=== PATIENT | female | born 1940 | race Caucasian/White ===

== ENCOUNTER 2017-10-11 12:59 | Outpatient (RCR) | payer MEDICARE, BC, SELFPAY ==
--- NOTE | 2017-10-11 13:15 | IE_ITS ---
Date: October 11, 2017 Referring: Colton Rudolph M.D. M.D. Diagnosis: right shoulder pain (bursitis) and LBP SUBJECTIVE: History of Present Illness: Lizette is a 77 year old, right hand dominant female referred for an evaluation and treatment planning with a diagnosis of right shoulder bursitis and LBP. The patient reports an insidious onset of right shoulder pain without trauma. Symptoms began a month ago. Is having sharp pain with crepitus with use of the right UE, particularly reaching above chest level. The pain is globally throughout the shoulder, anterior and superior aspects. Regarding LBP, she complains of symptoms across the low back, particularly when having her bouts of jay jay from bipolar, cleaning her house from top to bottom. Symptoms can last 1 to 2 hrs. post activity, and she has to take Excedrin or Tylenol and lay down. This does help. She also applies moist heat. She denies sciatica symptoms. Pain Ratin/10 at time of I.E. and 3/10 at it's worst. Back pain 0/10 at time of I.E. and 5/10 at it's worst. Current Level of Function: Difficulty reaching above chest level, such as when putting dishes away in higher cabinets, lifting a water jug from the refrigerator as well as holding her pocketbook with her elbow flexed. Social: She is retired. Lives in a multi level home with her . Comorbidities: Hypo thyroidism, bipolar Falls in the last year: __x__ No ____Yes - How many? ____ - (if over 2, balance SM needs to be completed) Reported hospitalizations in the last year - __x__ No ____ Yes - Dates of admission/reason: Medications: See patient EMR. Quality of Life: __x__ Good Standardized Measures: DASH score: __22%__ MOLBPDQ: __22%__ OBJECTIVE: Posture: Increased thoracic kyphosis with a mild Dowagers hump. Forward head. Poor sitting posture with excessive slouch that can be corrected with tactile and verbal cues. Palpation: Painfree palpation throughout bilateral glutes and lumbar paraspinals. Mild hypomobility detected with PAs L3 through L5 with minimal pain. Mild discomfort over the anterior cuff of the right shoulder; (-) posteriorly. ROM: Active glenohumeral joint ROM 140 bilaterally and 150 AA and 160 P in supine. External rotation to T3 bilaterally and internal rotation T8 left; L2 right and T11 AA. The patient does have crepitus with active elevation from 80 to 110 . This is reduced with proper scapular positioning. Lumbar spine AROM, flexion 2 fingertips from the floor without pain, extension 10 , side bending and rotation WNL bilaterally without pain. Hip ROM WNL throughout all planes without pain. Strength: 4/5 glenohumeral joint flexion and abduction without pain, ext rotation 4-/5 bilaterally and int rotation 4+/5 bilaterally without pain. Hip strength, abduction 4/5 tested in sitting, flexion 4+/5 bilaterally, adduction 5/5 bilaterally, quadriceps and hamstrings 4+/5 bilaterally. Neuro: Sensation is intact to light touch throughout bilateral LEs. DTRs hypo reflexive and +1 for knee jerk and ankle jerk bilaterally. Myotomes are congruent bilaterally; 4/5 LEs. Special Tests: (+) Honeycutt Elmer. (-) empty can. (-) speeds. (-) dural tension testing with SLR or slump testing. (-) lumbar quadrant compression. Treatment: IE: 11605 x1 Patient Education: HEP focusing on seated rows, prone glenohumeral joint extension with scapular depression/retraction, prone hip extension and prone on elbows as well as bent knee fall outs and knee to chest ROM exercises. The patient declined the need for moist heat post treatment. Therapeutic procedure: ([id number][]). Direct treatment time: 60 min. from 1:00 til 2:00 P.M. ASSESSMENT: Patient is a 77-year-old female, referred for PT services with the diagnosis of right shoulder bursitis and LBP. Patient presents with clinical signs and symptoms consistent with OA of the right shoulder and DJD/DDD of the lumbar spine, as demonstrated by the following impairment level findings: impaired joint mobility, motor function, muscle performance and ROM associated with connective tissue dysfunction and localized inflammation Impairments are contributing to the following functional limitations: as listed above. Patient's postural deficits certainly predispose her to poor scapular mechanics resulting in increased compression subacromially. Patient is assessed as: __x__ Low 23400 complexity, based on the following: History: (list): See comorbidities and social history. Examination: (list): See above for functional limitations and impairments. Presentation: Stable and uncomplicated Decision-Making: Low complexity ____ Patient requires skilled PT intervention to remediate the above functional limitations to return to: __x__ Return to full functional mobility Prognosis: __x__ Good G-Codes (fill in modifier after appropriate code): Patient's primary functional limitation is in the category of: __x__ Carrying, moving and handling objects: -[id number] Projected goal: __x__ Carrying, moving, and handling objects [id number] STG: __6__ weeks. 1) independent and compliant with her HEP 2) improve shoulder strength for ext rotation to greater than or equal to 4+/5 3) patient independent in postural correction and maintenance of proper sitting postures 4) patient demonstrating self pacing strategies when cleaning to avoid exacerbation of LBP LTG: __12__ weeks. 1) independent in self maintenance program PLAN: Patient to be seen 1x per week every 2 weeks for progression of her HEP with focus on postural correction exercises, ext rotation strengthening, glute and lumbar extensor strengthening. The patient wishes to pursue this through an independent program. Will consider right glenohumeral joint mobilization if she is not progressing well, and would also consider including more in clinic soft tissue work and shoulder mobilizations as needed. The patient is to be discharged when the above goals have been met. Thank you for this referral. Please do not hesitate to contact me with any questions or concerns regarding this patient's plan of care. Please sign, date and return to our clinic with your approval.................................... Colton Rudolph M.D.
== END 2017-10-20 23:59 | disposition home or self-care (01) ==
LOC: PT 12:59
PROVIDERS: PCP Family Medicine; Referring Provider Family Medicine; Visit Provider Family Medicine
DX: M25.511 Pain in right shoulder (principal); M19.011 Primary osteoarthritis, right shoulder; M54.5 Low back pain; M51.36 Other intervertebral disc degeneration, lumbar region
CPT/HCPCS: 97110; 97161

== ENCOUNTER → 2017-11-20 12:56 | Outpatient (BNVA) | payer MEDICARE, BC, SELFPAY | PROVIDERS: PCP Family Medicine; Visit Provider Nurse Practitioner Gerontology | DX: R39.12 Poor urinary stream (principal) | CPT/HCPCS: 51798; 81003; 99204; 99215 ==

== ENCOUNTER 2017-11-30 13:49 | Outpatient (CLI) | payer MEDICARE, BC, SELFPAY ==
[2017-11-30 19:43] LABS: Bilirubin Negative (Negative); Blood Trace-intact (Negative); Clarity Sl Cloudy; Glucose Negative (Negative); Ketones Negative (Negative); Leukocyte Esterase Small (Negative); Nitrite Positive (Negative); Urobilinogen 0.2 EU/dL (Up TO 0.2); pH 5.5 (5-8)
[2017-11-30 19:54] LABS: Bacteria Many HPF (Negative); Casts Negative LPF (Negative); Crystals Negative HPF (Negative); Epithelial Cells Negative HPF (Negative); Mucus Negative (Negative); RBC 20-50 (0-2); WBC >50 HPF (0-5)
[2017-11-30 19:55] LABS: C & S Indicated? Yes
== END 2017-11-30 14:09 ==
PROVIDERS: PCP Family Medicine; Visit Provider Family Medicine
DX: R30.0 Dysuria (principal)
CPT/HCPCS: 87077; 81003; 81015; 87086; 87186

== ENCOUNTER 2017-12-22 02:02 | Outpatient (CLI) | payer MEDICARE, BC, SELFPAY ==
[2017-12-22 15:17] LABS: Cholesterol 242 mg/dL (50-200); Glucose 106 mg/dL (70-100); HDL Cholesterol 54 mg/dL (40-60); LDL CHOLESTEROL 155 mg/dL (<100); TSH (W/Ref FT4) 2.37 uIU/mL (0.358-3.74); Triglyceride 142 mg/dL (30-150)
== END 2017-12-22 02:22 ==
PROVIDERS: PCP Family Medicine; Visit Provider Family Medicine
DX: E74.39 Other disorders of intestinal carbohydrate absorption (principal); E03.9 Hypothyroidism, unspecified; E11.9 Type 2 diabetes mellitus without complications
CPT/HCPCS: 36415; 80061; 82947; 83721; 84443

== ENCOUNTER 2018-01-31 10:13 | Outpatient (REF) | payer MEDICARE, BC, SELFPAY ==
[2018-01-31 11:14] LABS: Bilirubin Negative (Negative); Blood Large (Negative); Clarity Sl Cloudy; Glucose Negative (Negative); Ketones Negative (Negative); Leukocyte Esterase Moderate (Negative); Nitrite Negative (Negative); Specific Gravity >= 1.030 (1.005-1.025); Urobilinogen 0.2 EU/dL (Up TO 0.2); pH 5.5 (5-8)
[2018-01-31 11:21] LABS: Bacteria Few HPF (Negative); C & S Indicated? Yes; Casts Negative LPF (Negative); Crystals Negative HPF (Negative); Epithelial Cells Few HPF (Negative); Mucus Trace (Negative); RBC >50 (0-2); WBC 20-50 HPF (0-5)
== END 2018-01-31 10:33 ==
LOC: LBN 10:13
PROVIDERS: PCP Family Medicine; Visit Provider Family Medicine
DX: R30.0 Dysuria (principal)
CPT/HCPCS: 87077; 81003; 81015; 87086; 87186

== ENCOUNTER 2018-03-26 11:34 | Outpatient (CLI) | payer MEDICARE, BC, SELFPAY ==
[2018-03-26 22:10] LABS: Bilirubin Negative (Negative); Blood Moderate (Negative); Clarity Sl Cloudy; Glucose Negative (Negative); Ketones Trace mg/dL (Negative); Leukocyte Esterase Large (Negative); Nitrite Positive (Negative); Specific Gravity 1.025 (1.005-1.025); Urobilinogen 0.2 EU/dL (Up TO 0.2); pH 5.5 (5-8)
[2018-03-26 22:24] LABS: RBC >50 (0-2); WBC >50 HPF (0-5)
[2018-03-26 22:25] LABS: Bacteria Many HPF (Negative); C & S Indicated? Yes; Casts Negative LPF (Negative); Crystals Negative HPF (Negative); Epithelial Cells Negative HPF (Negative); Mucus Negative (Negative)
== END 2018-03-26 11:54 ==
PROVIDERS: PCP Family Medicine; Visit Provider Family Medicine
DX: R30.0 Dysuria (principal)
CPT/HCPCS: 87077; 81003; 81015; 87086; 87186

== ENCOUNTER → 2018-03-28 12:47 | Outpatient (BNVA) | payer MEDICARE, BC, SELFPAY | PROVIDERS: PCP Family Medicine; Visit Provider Nurse Practitioner Gerontology | DX: N39.0 Urinary tract infection, site not specified (principal); R39.12 Poor urinary stream | CPT/HCPCS: 99213 ==

== ENCOUNTER 2018-05-29 09:42 | Outpatient (CLI) | payer MEDICARE, BC, SELFPAY ==
--- NOTE | 2018-05-29 09:35 | DI.RAD_ITS ---
SYMPTOMS/DIAGNOSIS: PAIN RIGHT SHOULDER: Three views. Comparison 01/01/14. There are hypertrophic changes seen at the acromioclavicular joint and the greater tuberosity. Mild degenerative changes are seen at the glenohumeral joint. The bones are normally mineralized. The soft tissues are unremarkable. IMPRESSION: Mild to moderate osteoarthritis of the right shoulder.
== END 2018-05-29 10:02 ==
PROVIDERS: PCP Family Medicine; Referring Provider Family Medicine; Visit Provider Orthopaedic Surgery
DX: M25.511 Pain in right shoulder (principal); M19.011 Primary osteoarthritis, right shoulder
CPT/HCPCS: 20610; 99211; 99213; 73030; J1040

== ENCOUNTER 2018-10-22 13:49 | Emergency (ER) | payer MEDICARE, BC, SELFPAY ==
[2018-10-22 13:56] VITALS: BP 130/66; PULSE 90; RESP 20; TEMP 37; O2SAT 95
--- NOTE | 2018-10-22 14:49 | DI.RAD_ITS ---
SYMPTOM/DIAGNOSIS: KNEE PAIN LEFT KNEE: No fracture is identified. There may be a small joint effusion. There are degenerative changes of the medial femoral tibial joint and patellofemoral joint. IMPRESSION: Degenerative changes. No acute abnormality.
[2018-10-22 15:22] VITALS: BP 125/65; PULSE 73; RESP 16; O2SAT 95
--- NOTE | 2018-10-22 15:22 | W.ED.GENAD ---
Discharge Plan Disposition Patient Disposition: HOME Condition: Stable Discharge Details Chief Complaint: Orthopedic Clinical Impression: Acute knee pain Primary Care Provider: Fei Monreal ED Provider: Young Pratt Home Meds and New Rx's Prescriptions: Continued Premarin 0.625 mg/gram cream 1 applic Vaginal .2 times a week Qty: 60 RF: 0 Trintellix 10 mg tablet 20 mg PO DAILY Qty: 30 RF: 2 multivitamin 1 EACH capsule 1 ea PO DAILY RF: 0 nystatin 60 GM powder 1 gilda Topical BID prn Qty: 60 RF: 11 clobetasol 60 GM cream 1 applic Topical BID PRN RF: 0 cholecalciferol (vitamin D3) [Vitamin D3] 1,000 UNIT tablet,chewable 1,000 unit PO DAILY Qty: 90 RF: 3 vitamin B complex 1 EACH capsule 1 ea PO DAILY RF: 0 levothyroxine 75 mcg tablet 75 mcg PO DAILY Qty: 90 RF: 3 lorazepam 0.5 mg tablet 0.5 mg PO Q12H PRN (Reason: anxiety) Qty: 60 RF: 1 Discharge Instructions Instructions: Knee Pain (ED) Additional Instructions: rest ice and elevate extremity over the next 2 to 3 days and then slowly advance activity as tolerated with continue with hinged knee brace for the next 4 to 6 weeks. You may continue to take [id number] pain medication as needed for discomfort and to follow-up with orthopedist in the next 1 to 2 weeks for reassessment. Feel free to return to the emergency department for any new or significant worsening of your symptoms or further concerns you may have. Referrals: Milad Vieira MD [ [facility] STAFF PHYSICIAN] - Discharge Data Discharge Date/Time-TO BE ENTERED AT DEPARTURE: 10/22/18 15:55 Medical Decision Making Patient presenting to the emergency department for chief complaint of left knee pain. Patient reports yesterday she was going up some stairs and had a slight fall with a twisting type motion to her left knee. Afterwards she was unable to fully bear weight and that flexion of the knee significantly hurts. Patient denies any other injury or trauma loss of consciousness or other painful areas. Physical exam shows tenderness to the posterior aspects of the knee, slight patellar swelling, pain noted with both anterior and posterior drawer test. Exam is otherwise unremarkable. Given patient's age, fall, and inability to work bear weight I do feel that radiological imaging is warranted but I feel injury is highly suspicious of ligamentous type injury. Review of radiological imaging showsNo evidence of acute bony abnormality. It does note some mild degenerative arthritis. Given no acute fracture patient was placed in a hinged knee brace and encouraged to rest ice and elevate extremity over the next 2 to 3 days and then slowly advance activity as tolerated with continue with hinged knee brace. Otherwise patient may continue to take pjdz-[id number] pain medication as needed for discomfort and to follow-up with orthopedist in the next 1 to 2 weeks for reassessment. After discussion of diagnosis and plan of care patient has no further needs, questions, or concerns and states clear understanding to return to the emergency department for any worsening symptoms. HPI General Mode of arrival: ambulatory (With crutches). Date/Time Provider Initiated Documentation: 10/22/18 14:17. Limitations to Documentation: no limitations. Information obtained by: patient, family and RN notes reviewed. History of Present Illness 78 year old F presents to the emergency department with the chief complaint of Left knee injury, described as moderate, with intensity rated at 8. Quality is described as aching, and is localized to the left and lower extremity. Patient started experiencing this day(s) (1) and it has been constant. Rest improves symptom(s), Movement worsens symptoms . Patient notes no other symptoms.. Patient did receive the following treatments prior to arrival, none Related Data Home Medications Medication Instructions Recorded Confirmed multivitamin 1 ea PO DAILY 06/29/12 10/22/18 nystatin 1 gilda TOPICAL BID prn #60 gm 08/26/14 10/22/18 clobetasol 1 applic TOPICAL BID PRN script 03/19/15 10/22/18 cholecalciferol (vitamin D3) 1,000 unit PO DAILY #90 tab.chew 11/08/16 10/22/18 [Vitamin D3] vitamin B complex 1 ea PO DAILY 03/17/17 10/22/18 conjugated estrogens 0.625 mg/gram 1 applic VAGINAL .2 times a week 11/20/17 10/22/18 vaginal cream #60 gm levothyroxine 75 mcg tablet 75 mcg PO DAILY #90 tab 06/05/18 10/22/18 lorazepam 0.5 mg tablet 0.5 mg PO Q12H PRN #60 tab-cap 07/26/18 10/22/18 vortioxetine 10 mg tablet 20 mg PO DAILY #30 tab 08/10/18 10/22/18 Previous Rx's Medication Instructions Recorded cholecalciferol (vitamin D3) 1,000 unit PO DAILY #90 tab.chew 11/08/16 [Vitamin D3] conjugated estrogens 0.625 mg/gram 1 applic VAGINAL .2 times a week 11/20/17 vaginal cream #60 gm levothyroxine 75 mcg tablet 75 mcg PO DAILY #90 tab 06/05/18 lorazepam 0.5 mg tablet 0.5 mg PO Q12H PRN #60 tab-cap 07/26/18 vortioxetine 10 mg tablet 20 mg PO DAILY #30 tab 08/10/18 Allergies Allergy/AdvReac Type Severity Reaction Status Date / Time lurasidone [From Latuda] Allergy Intermediate Rash Verified 08/10/18 13:45 sulfamethoxazole AdvReac Severe Nausea, Verified 08/10/18 13:45 [From Bactrim] abd pain trimethoprim [From Bactrim] AdvReac Severe Nausea, Verified 08/10/18 13:45 abd pain General Stated Complaint: Orthopedic GINA: 4 Review of Systems Cardiovascular Denies syncope Musculoskeletal Reports as per HPI, Denies numbness and Denies tingling Integumentary/Breasts Denies rash, Denies sores and Denies wounds Neurologic Denies syncope, Denies numbness and Denies tingling PFSH Surgical History Biopsy of breast left; benign lump CorrectionGavin (11/18/14) RIGHT FOOT ; DR. 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 Brother No problems noted. Brother No problems noted. Grandfather Diabetes Stroke Grandfather Heart disease Grandmother Neoplasm Grandmother No problems noted. Son No problems noted. Son No problems noted. Social History Smoking/Tobacco Use Status: Former Tobacco Use Alcohol Intake: current Alcohol Intake frequency: a few times a month Drug use: Never Substance use type: does not use Household members: other Details: 2 Pets and animals: Yes Pets and animals: dog(s) What type of physical activity do you participate in: none Candida/Synagogue: [employer] Special candida needs: No Do you feel safe at home: Yes Do you feel safe in your relationship?: Yes Exam Const General: cooperative and no acute distress Orientation: alert, awake and oriented x3 Resp Effort & Inspection: normal respiratory effort and able to speak in complete sentences Cardio Rate: regular rate Rhythm: regular rhythm Extrem Left lower extremity: hip/thigh Details: normal to inspection; no tenderness, knee Details: tenderness Location: of the popliteal fossa and of the medial joint line, swelling (Mild) Location: of the infrapatellar area, abnormal ROM Details: pain with active ROM Details: with flexion; able to extend lower leg actively, knee ligament exam normal Details: valgus stress test normal and varus stress test normal and knee ligament exam abnormal Details: anterior drawer test Details: pain noted and posterior drawer test Details: pain noted; no abrasions, no lacerations, no ecchymosis and no crepitus, lower leg Details: normal to inspection; no erythema, no tenderness, no localized swelling and edema noted and foot Details: vascular exam Details: dorsalis pedis pulse present, posterior tibial pulse present and normal capillary refill Course Vital Signs Temperature 37.0 C 10/22/18 13:56 Pulse 90 10/22/18 13:56 Respiratory Rate 20 10/22/18 13:56 Blood Pressure 130/66 10/22/18 13:56 Pulse Oximetry 95 10/22/18 13:56 Temperature 35.3 C L 10/22/18 15:14 Temperature Source Skin 10/22/18 13:56 Pulse 62 10/22/18 15:14 Respiratory Rate 14 10/22/18 15:14 Respiratory Effort Non-Labored 10/22/18 14:02 Blood Pressure 127/81 10/22/18 15:14 Blood Pressure Position Supine 10/22/18 13:56 Pulse Oximetry 99 10/22/18 15:14 Oxygen Delivery Method Room Air 10/22/18 13:56 Oxygen Flow Rate 0 10/22/18 13:56 Pain Level 1 10/22/18 15:14 Comment 10/22/18 13:56
[2018-10-22 15:30] VITALS: BP 125/65; PULSE 73; RESP 16; O2SAT 95
--- NOTE | 2018-10-22 15:31 | DI.VRAD_ITS ---
EXAM: XR Left Knee EXAM DATE/TIME: 10/22/2018 2:49 PM CLINICAL HISTORY: 78 years old, female; Left; Patient HX: Knee pain; Per PT: Twisted on 10/21/18 in pm TECHNIQUE: Imaging protocol: XR Left knee. Views: 3 views. COMPARISON: No relevant prior studies available. FINDINGS: Mild degenerative arthritis with medial and patellofemoral joint space narrowing and osteophytic spurring. No acute fracture. Suggestion of a very small suprapatellar joint effusion. Soft tissues otherwise unremarkable. IMPRESSION: No evidence of acute bony abnormality. Dictated and Authenticated by: Al Rand MD. Ordering:JAK Vidal MD
== END 2018-10-22 15:55 | disposition home or self-care (01) ==
PROVIDERS: Emergency Provider Nurse Practitioner Family; PCP Family Medicine
DX: M25.562 Pain in left knee (principal); W10.8XXA Fall (on) (from) other stairs and steps, initial encounter; X50.9XXA Other and unspecified overexertion or strenuous movements or postures, initial encounter
CPT/HCPCS: 29505; 73562; 99283; L1810

== ENCOUNTER → 2018-11-07 11:09 | Outpatient (BNVA) | payer MEDICARE, BC, SELFPAY | PROVIDERS: PCP Family Medicine; Referring Provider Family Medicine; Visit Provider Orthopaedic Surgery | DX: M70.52 Other bursitis of knee, left knee (principal); W10.8XXA Fall (on) (from) other stairs and steps, initial encounter; X50.9XXA Other and unspecified overexertion or strenuous movements or postures, initial encounter | CPT/HCPCS: 99201; 99213 ==

== ENCOUNTER 2018-12-17 09:22 | Outpatient (CLI) | payer MEDICARE, BC, SELFPAY ==
[2018-12-17 15:50] LABS: Hemoglobin A1C 5.3 % (4.5-6.2)
[2018-12-17 16:20] LABS: Bilirubin Negative (Negative); Blood Trace-intact (Negative); Clarity Cloudy (Clear); Glucose Negative (Negative); Ketones Negative (Negative); Leukocyte Esterase Moderate (Negative); Nitrite Positive (Negative); Specific Gravity 1.015 (1.005-1.025); Urobilinogen 0.2 EU/dL (Up TO 0.2)
[2018-12-17 16:46] LABS: Epithelial Cells Few HPF (Negative); Other Cells Moderate Renal (Negative); WBC >50 HPF (0-5)
[2018-12-17 16:46] LABS: TSH (W/Ref FT4) 1.36 uIU/mL (0.36-3.74)
[2018-12-17 16:47] LABS: Bacteria Packed HPF (Negative); C & S Indicated? Yes; Casts Negative LPF (Negative); Crystals Negative HPF (Negative); Mucus Negative (Negative)
== END 2018-12-17 09:42 ==
PROVIDERS: PCP Family Medicine; Visit Provider Family Medicine
DX: F31.81 Bipolar II disorder (principal); R73.01 Impaired fasting glucose; R30.0 Dysuria; R35.0 Frequency of micturition
CPT/HCPCS: 36415; 87077; 81003; 81015; 83036; 84443; 87086; 87186

== ENCOUNTER → 2019-03-26 14:34 | Outpatient (BNVA) | payer MEDICARE, BC, SELFPAY | PROVIDERS: PCP Family Medicine; Referring Provider Family Medicine; Visit Provider Nurse Practitioner Gerontology | DX: N39.0 Urinary tract infection, site not specified (principal) | CPT/HCPCS: 99213 ==

== ENCOUNTER → 2019-04-24 10:07 | Outpatient (BNVA) | payer MEDICARE, BC, SELFPAY | PROVIDERS: PCP Family Medicine; Referring Provider Family Medicine; Visit Provider Orthopaedic Surgery | DX: M70.52 Other bursitis of knee, left knee (principal) | CPT/HCPCS: 99213 ==

== ENCOUNTER → 2020-07-07 15:28 | Outpatient (BNVA) | payer MEDICARE, BC, SELFPAY | PROVIDERS: PCP Family Medicine; Referring Provider Family Medicine; Visit Provider Nurse Practitioner Gerontology | DX: N39.0 Urinary tract infection, site not specified (principal); R39.12 Poor urinary stream | CPT/HCPCS: 99214 ==

== ENCOUNTER 2020-07-24 02:20 | Outpatient (CLI) | payer MEDICARE, BC, SELFPAY ==
[2020-07-24 15:06] LABS: Calculated LDL 167 mg/dL (<100); Cholesterol 252 mg/dL (<200); HDL Cholesterol 53 mg/dL (40-60); TSH (W/Ref FT4) 2.58 uIU/mL (0.36-3.74); Triglyceride 164 mg/dL (<150)
== END 2020-07-24 02:21 | disposition home or self-care (01) ==
LOC: LBO 02:20
PROVIDERS: PCP Family Medicine; Visit Provider Family Medicine
DX: E78.5 Hyperlipidemia, unspecified (principal); E03.9 Hypothyroidism, unspecified
CPT/HCPCS: 36415; 80061; 84443

== ENCOUNTER 2020-07-31 06:44 | Outpatient (CLI) | payer MEDICARE, BC, SELFPAY ==
--- NOTE | 2020-07-31 07:45 | DI.US_ITS ---
Exam(s) US PELVIS TRANSVAGINAL EXAM: US PELVIS TRANSVAGINAL CLINICAL HISTORY: rlq pain, R10.31 TECHNIQUE: Transabdominal and transvaginal imaging was performed using standard protocol. COMPARISON: No exams were available for comparison FINDINGS: KIDNEYS: Kidneys are symmetric in size. No evidence of renal calculi. No evidence of hydronephrosis. No renal mass or cyst identified. UTERUS: Anteverted. 5.1 X 2.1 X 3.7 Endometrium: 3.6 MILLIMETERS Myometrium: Unremarkable. uterine vascular calcifications. Cervix: Unremarkable. OVARIES: Right: Cyst or mass: None. Left: Cyst or mass: not well seen due to adjacent bowel. No cyst or mass. DOPPLER: Color: Symmetric and uniform flow to both ovaries. No hyperemia. Duplex: Normal ovarian arterial waveforms visualized. CUL-DE-SAC: Free fluid: None. IMPRESSION: 1. Normal-appearing uterus with endometrial stripe within normal limits. 2. Unremarkable bilateral ovaries. DATA REPOSITORY:
== END 2020-07-31 07:04 ==
PROVIDERS: PCP Family Medicine; Visit Provider Family Medicine
DX: R10.31 Right lower quadrant pain (principal)
CPT/HCPCS: 76830; 76856

== ENCOUNTER 2020-09-04 03:13 | Outpatient (CLI) | payer MEDICARE, BC, SELFPAY ==
--- NOTE | 2020-09-04 14:00 | DI.RAD_ITS ---
Exam(s) XR HIP RT COMPLETE AP PELVIS EXAM: XR HIP RT COMPLETE AP PELVIS INDICATION: rt hip pain,M25.559. COMPARISON: CR LEFT HIP COMPLETE from 08/04/2008 TECHNIQUE: 2D digital imaging was performed. FINDINGS: Left hip prosthesis, unremarkable as visualized.. Moderate to severe narrowing of the right hip suraj nt space. Moderate periarticular spurring and sclerosis. Enthesophytes iliac wings. Advanced degen erative disc changes in the lower lumbar spine. Narrowing and spurring at the pubic symphysis. Mild AC joint spurring. IMPRESSION: Moderate to severe degenerative changes of the right hip. DATA REPOSITORY: RADIATION DOSE DELIVERED:
== END 2020-09-04 03:33 ==
PROVIDERS: PCP Family Medicine; Visit Provider Family Medicine
DX: M16.11 Unilateral primary osteoarthritis, right hip (principal)
CPT/HCPCS: 73502

== ENCOUNTER → 2020-10-08 09:04 | Outpatient (BNVA) | payer MEDICARE, BC, SELFPAY | PROVIDERS: PCP Family Medicine; Referring Provider Family Medicine; Visit Provider Student in an Organized Health Care Education/Training Program | DX: M16.11 Unilateral primary osteoarthritis, right hip (principal) | CPT/HCPCS: 99214 ==

== ENCOUNTER 2020-10-08 15:12 | Outpatient (CLI) | payer MEDICARE, BC, SELFPAY ==
--- NOTE | 2020-10-08 10:45 | DI.RAD_ITS ---
Exam(s) RF JOINT INJECTION FLUORO GUID EXAM: RF JOINT INJECTION FLUORO GUID CLINICAL HISTORY: r hip inj under fluoro TECHNIQUE: Fluoroscopy provided. Radiologist not present. CONTRAST MATERIAL: None COMPARISON: No exams were available for comparison FINDINGS: Fluoroscopy was provided for Dr. Vieira during right hip therapeutic injection. Submitted image(s) reveal needle placement at junction of the femoral head and neck with injection of intra-articular contrast. Please refer to the procedure report for complete details. Cumulative Dose: Rosalindr=1.34 report mGy IMPRESSION: RADIATION DOSE DELIVERED:
--- NOTE | 2020-10-08 15:16 | W.PROCNOTE ---
Date of service: 10/08/20 Time of Service: 15:16 Procedure Note Procedure: Right Hip Injection with Fluoroscopic Guidance Surgeon/Proceduralist/Physician: Milad Vieira Procedure Diagnosis: Right Hip Osteoarthritis Procedure Indications: Lizette has had persistent and worsening pain of the RIGHT hip and groin. Noninvasive measures have been tried. To serve as both diagnostic and therapeutic, an injection under fluoroscopy was recommended. I had discussed the risks of the procedure and the patient elected to proceed. Procedure Description: Lizette was greeted in the flouroscopy room. The correct side was identified and the consent was reviewed with the patient and signed. The patient was then placed in the supine position on the fluoroscopy table. The RIGHT hip was then prepped with Chloraprep. The anterolateral injection starting point was identiifed by bony landmarks and fluoroscopy. The skin and soft tissue in the tract of the injection was anesthetized with 1% Lidocaine. A spinal needle was then inserted deep into the hip joint at the level of the lateral femoral neck under fluoroscopic guidance. A small amount of Omnipaque solution was injected to confirm intraarticular placement. Once confirmed, the hip was injected with 6cc of 0.5% Bupivicaine and 80mg of Depo-Medrol. A bandaid was placed on the injection site.
[2020-10-08] MEDS: Omnipaque 300 MG/ML 10 ML BTL 6 ML IJ (15:17)
[2020-10-08] MEDS: methylPREDNISolone ACETATE 80 MG/ML VIAL IJ (15:18)
[2020-10-08] MEDS: Bupivacaine 0.5% Pres-Free 10 ML VIAL 6 ML IJ (15:19)
== END 2020-10-08 15:32 ==
PROVIDERS: PCP Family Medicine; Visit Provider Student in an Organized Health Care Education/Training Program
DX: M25.551 Pain in right hip (principal); M16.11 Unilateral primary osteoarthritis, right hip
CPT/HCPCS: 20610; 77002; 99214; J1040

== ENCOUNTER → 2021-01-11 12:55 | Outpatient (BNVA) | payer MEDICARE, BC, SELFPAY | PROVIDERS: PCP Family Medicine; Referring Provider Family Medicine | DX: Z01.818 Encounter for other preprocedural examination (principal); M16.11 Unilateral primary osteoarthritis, right hip ==

== ENCOUNTER 2021-01-18 02:03 | Outpatient (CLI) | payer MEDICARE, BC, SELFPAY ==
[2021-01-18 12:43] LABS: Source Nasal/Nares
[2021-01-19 11:08] LABS: COVID-19 PCR Negative (Negative)
== END 2021-01-18 02:04 | disposition home or self-care (01) ==
LOC: LBO 02:03
PROVIDERS: PCP Family Medicine; Visit Provider Student in an Organized Health Care Education/Training Program
DX: Z20.822 Contact with and (suspected) exposure to COVID-19 (principal)
CPT/HCPCS: 87635

== ENCOUNTER 2021-01-18 02:44 | Outpatient (CLI) | payer MEDICARE, BC, SELFPAY ==
[2021-01-18 11:09] LABS: HCT 41.4 % (36.0-46.0); HGB 13.7 g/dL (11.2-15.7); MCH 31.6 pg (27.0-33.0); MCHC 33.1 % (32.0-36.0); MCV 95.6 fL (80-95); MPV 11.7 fL (8.0-11.0); Platelet Count 211 10^3/uL (130-400); RBC 4.33 10^6/uL (3.93-5.22); RDW 12.3 % (11.7-14.6); RDW-SD 43.9 fL
[2021-01-18 12:31] LABS: Anion Gap 8.4 mmol/L (3-11); BUN 22 mg/dL (7-18); CO2 28.6 mmol/L (21.0-32.0); CREATININE 0.9 mg/dL (0.55-1.02); Calcium 9.2 mg/dL (8.5-10.1); Chloride 105 mmol/L (98-107); Glucose 107 mg/dL (74-106); Potassium 4.3 mmol/L (3.5-5.1); Sodium 142 mmol/L (136-145)
== END 2021-01-18 02:45 | disposition home or self-care (01) ==
PROVIDERS: PCP Family Medicine; Visit Provider Student in an Organized Health Care Education/Training Program
DX: M16.12 Unilateral primary osteoarthritis, left hip (principal); Z01.818 Encounter for other preprocedural examination
CPT/HCPCS: 36415; 80048; 85027; 86850; 86900; 86901; 87635

== ENCOUNTER 2021-01-20 06:12 | Day surgery (SDC) | payer MEDICARE, BC, SELFPAY ==
[2021-01-20] VITALS (12 sets, daily range): BP systolic 68–122; BP diastolic 51–92; PULSE 61–94; RESP 7–20; TEMP 36.1–36.4; O2SAT 93–100; BMI 30.1
--- NOTE | 2021-01-20 06:12 | W.ANESPRE ---
General Info Date of Service Date Performed: 01/20/21 Height: 4 ft 11 in Weight: 67.585 kg Body Mass Index (BMI): 30.1 Surgical Procedure: Operation Date: 01/20/21 07:50 Proposed Procedures Side Surgeon p Hip Total Hip Anterior Right Milad Vieira MD Meds Allergies and Home Medications Allergies Allergy/AdvReac Type Severity Reaction Status Date / Time lurasidone [From Latuda] Allergy Intermediate Rash Verified 01/20/21 06:27 sulfamethoxazole AdvReac Severe Nausea, Verified 01/20/21 06:27 [From Bactrim] abd pain trimethoprim [From Bactrim] AdvReac Severe Nausea, Verified 01/20/21 06:27 abd pain Home Medication Medication Instructions Recorded multivitamin 1 ea PO DAILY 06/29/12 nystatin 1 gilda TOPICAL BID prn #60 gm 08/26/14 clobetasol 1 applic TOPICAL BID PRN script 03/19/15 cholecalciferol (vitamin D3) 1,000 unit PO DAILY #90 tab.chew 11/08/16 [Vitamin D3] vitamin B complex 1 ea PO DAILY 03/17/17 ascorbic acid (vitamin C) 1,000 mg 1 gm PO DAILY tab 03/12/19 tablet diphenoxylate-atropine 2.5 1 tab PO Q12H PRN #30 tab-cap 07/22/20 mg-0.025 mg tablet conjugated estrogens 0.625 mg/gram 1 applic VAGINAL DAILY #60 g 09/23/20 vaginal cream lorazepam 0.5 mg tablet 0.5 mg PO Q12H PRN #30 tab-cap 11/10/20 celecoxib 200 mg capsule 200 mg PO BID #60 cap 12/01/20 levothyroxine 75 mcg tablet 75 mcg PO DAILY #90 tab 12/23/20 tramadol 100 mg tablet 100 mg PO Q8H PRN #30 tab 01/01/21 quetiapine 50 mg tablet 50 - 200 mg PO DAILY #60 tab 01/19/21 Current Visit Medications: Current Medications Generic Name Dose Route Start Last Admin Trade Name Freq PRN Reason Stop Dose Admin Acetaminophen 1,000 mg 01/20/21 06:00 Acetaminophen 500 Mg Tab PO 01/20/21 16:00 PREOP ENEIDA Celecoxib 400 mg 01/20/21 06:00 Celecoxib 200 Mg Cap PO 01/20/21 16:00 PREOP ENEIDA Tranexamic Acid 1,000 mg/ 60 mls @ 360 mls/hr 01/20/21 06:00 Sodium Chloride IV 01/20/21 16:00 PREOP ENEIDA Ringer's Solution 1,000 mls @ 80 mls/hr 01/20/21 06:00 IV 02/18/21 23:59 INFUSION ENEIDA Cefazolin Sodium/Dextrose 2 gm in 50 mls @ 100 mls/hr 01/20/21 06:00 Ancef Duplex IVPB 02/18/21 23:59 PREOP ENEIDA IV Miscellaneous Supplies 1 each 01/20/21 06:00 Iv Access IV 02/18/21 23:59 DIRECTED ENEIDA Sodium Chloride 0 ml 01/20/21 06:00 Normal Saline Flush 10 Ml Syr IV 02/18/21 23:59 PRN PRN Sodium Chloride 0 ml 01/20/21 06:00 Normal Saline 10 Ml Vial IJ 02/18/21 23:59 DIRECTED PRN Sterile Water 0 ml 01/20/21 06:00 Water,Injection,Sterile 10 Ml Vial IJ 02/18/21 23:59 DIRECTED PRN PFSH Active Problems Active Problems: Problem Status Onset Code Osteoarthritis of right hip M16.11 Hip joint pain M25.559 Sciatica M54.30 RLQ abdominal pain R10.31 Depression F32.9 Skin tear of left lower leg without complication S81.812A Glossodynia K14.6 Chronic insomnia F51.04 Muscular deconditioning R29.898 Left knee sprain S83.92XA Rash R21 Bursitis of left knee M70.52 Persistent mood disorder F34.9 Carpal tunnel syndrome of right wrist 12/17/13 G56.01 History of bilateral ligation of fallopian tubes Z98.51 History of methicillin resistant Staphylococcus aureus infection Z86.14 History of tobacco use Z87.891 Status post breast biopsy Z98.890 Status post bunionectomy 11/18/14 Z98.890 Status post hip replacement Z96.649 Status post trigger finger release Z98.890 Rotator cuff syndrome 05/07/13 M75.100 Recurrent urinary tract infection 03/19/15 N39.0 Low back pain 01/14/11 M54.5 Intention tremor G25.2 Impaired fasting glucose 05/12/15 R73.01 Hypothyroidism 07/24/12 E03.9 Hives 05/08/15 L50.9 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 M15.9 Fatigue 10/02/12 R53.83 Bipolar I disorder 07/24/12 F31.9 Benign paroxysmal positional vertigo 05/07/13 H81.10 Atrophic vaginitis 10/22/10 N95.2 Weak urinary stream R39.12 Bipolar II disorder, moderate, depressed, with anxious distress F31.81 Medical History Active Problem List Bipolar II disorder, moderate, depressed, with anxious distress (Acute) Weak urinary stream (Acute) Atrophic vaginitis (Acute 10/22/10) Benign paroxysmal positional vertigo (Acute 05/07/13) Bipolar I disorder (Acute 07/24/12) Fatigue (Acute 10/02/12) Generalized osteoarthrosis (Acute 10/22/10) Hives (Acute 05/08/15) Hypothyroidism (Acute 07/24/12) Impaired fasting glucose (Acute 05/12/15) Intention tremor (Acute) Low back pain (Acute 01/14/11) Recurrent urinary tract infection (Acute 03/19/15) Rotator cuff syndrome (Acute 05/07/13) Status post trigger finger release (Acute) Status post hip replacement (Acute) Status post bunionectomy (Acute 11/18/14) Status post breast biopsy (Acute) History of tobacco use (Acute) History of methicillin resistant Staphylococcus aureus infection (Acute) History of bilateral ligation of fallopian tubes (Acute) Carpal tunnel syndrome of right wrist (Acute 12/17/13) Persistent mood disorder (Chronic) Bursitis of left knee (Acute) Rash (Acute) Left knee sprain (Acute) Muscular deconditioning (Acute) Chronic insomnia (Acute) Glossodynia (Acute) Skin tear of left lower leg without complication (Acute) Depression (Chronic) RLQ abdominal pain (Acute) Sciatica (Acute) Hip joint pain (Acute) Osteoarthritis of right hip (Acute) Surgical History Surgical History (Updated 01/20/21 @ 06:32 by Lorena Claero) Biopsy of breast left; benign lump Correction, [place] (11/18/14) RIGHT FOOT ; DR. 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 Trigger Finger release (~01/2012) WRIST/FINGER (~04/2013) carpal tunnel Tobacco Smoking/Tobacco Use Status: Former Tobacco Use Second hand exposure: Yes Alcohol Alcohol Intake: current Alcohol intake frequency: a few times a month Alcohol type: beer Substance Use Substance use: Never Substance use type: does not use Vital Signs and Lab Results Vital Signs Most Recent Vital Signs in EMR: Temp Pulse Resp BP Pulse Ox 36.3 C L 82 20 118/85 95 01/20/21 06:34 01/20/21 06:34 01/20/21 06:34 01/20/21 06:34 01/20/21 06:34 Lab Results Blood Type / Crossmatch: Patient ABO/Rh A Positive 01/18/21 10:57 01/18/21 Antibody Screen NEGATIVE 01/18/21 10:57 01/18/21 Complete Blood Count: White Blood Count 7.80 10^3/uL (4.4-10.8) 01/18/21 10:57 01/18/21 Red Blood Count 4.33 10^6/uL (3.93-5.22) 01/18/21 10:57 01/18/21 Hemoglobin 13.7 g/dL (11.2-15.7) 01/18/21 10:57 01/18/21 Hematocrit 41.4 % (36.0-46.0) 01/18/21 10:57 01/18/21 Platelet Count 211 10^3/uL (130-400) 01/18/21 10:57 01/18/21 Complete Metabolic Panel: Sodium Level 142 mmol/L (136-145) 01/18/21 10:57 01/18/21 Potassium Level 4.3 mmol/L (3.5-5.1) 01/18/21 10:57 01/18/21 Chloride Level 105 mmol/L (98-107) 01/18/21 10:57 01/18/21 Carbon Dioxide Level 28.6 mmol/L (21.0-32.0) 01/18/21 10:57 01/18/21 Blood Urea Nitrogen 22 mg/dL (7-18) H 01/18/21 10:57 01/18/21 Creatinine 0.9 mg/dL (0.55-1.02) 01/18/21 10:57 01/18/21 Estimated GFR/1.73 m2 >= 60.00 (mL/min/1.73m2) 01/18/21 10:57 01/18/21 Calcium Level 9.2 mg/dL (8.5-10.1) 01/18/21 10:57 01/18/21 Glucose Level 107 mg/dL (74-106) H 01/18/21 10:57 01/18/21 Liver Function Panel: No Data to Display Coagulation Panel: No Data to Display Cardiac Panel: No Data to Display Arterial Blood Gas: No Data to Display Venous Blood Gas: No Data to Display Pancreas Panel: No Data to Display Thyroid Panel: No Data to Display Infectious Disease: Coronavirus (COVID-19)(PCR) Negative (Negative) 01/18/21 11:11 01/18/21 Coronavirus 2019 Source Nasal/Nares 01/18/21 11:11 01/18/21 Blood Cultures: No Data to Display Toxicology Panel: No Data to Display Anesthesia Assessment and Plan Anesthesia History Personal History: No History of Anesthesia Complications Family History: No Family History of Anesthesia Complications Exercise Tolerance Exercise Tolerance: Metabolic Equivalents>4 Cardiac & Pulmonary Exam Cardiac Exam: Normal S1/S2 Heart Sounds Pulmonary Exam: Clear Bilateral Breath Sounds Implantable Cardiac Device Does patient have a Pacemaker or an ICD?: No Airway Exam Known Difficult Airway: No Mallampati Class: 3 Mouth Opening: Narrow (< 3cm) Thyromental Distance: Less than 3 cm Neck Range of Motion: Limited ROM Neck Circumference: Normal Teeth Condition: Normal Dentition (perm bridge on top. ) ASA Classification ASA Score: ASA 2 Emergency Case?: No NPO Status NPO Status: NPO Clears >2 hours, Solids >8 hours Anesthesia Plan Resuscitation Status: Full Code Anesthesia Technique: Spinal Anesthesia Airway Planned: Natural Airway Monitors Used: Standard Monitors Preoperative Comments:: 80 yo female for right KAM. Sig PMHx: hypothyroid (on replacement), depression, former smoker, occ EtOH. previsous anesthesia: ECTR without issues, previous GA in 2009 solomon 2 grade 2, easy mask.
[2021-01-20] MEDS: Celecoxib 200 MG CAP 400 MG PO (06:47)
[2021-01-20] MEDS: Acetaminophen 500 MG TAB 1000 MG PO (06:47)
[2021-01-20] MEDS: Lactated Ringers 1,000 ML 80 ML IV (06:55)
--- NOTE | 2021-01-20 07:20 | PDOC.DSDIS_ITS ---
Discharge Plan Disposition Patient Disposition: HOME Condition: Good Discharge Details Reason For Visit: Right Hip DJD Attending Provider: Milad Vieira Primary Care Provider: Fei Monreal Home Meds and New Rx's Prescriptions: New aspirin 81 mg tablet,delayed release (DR/EC) 81 mg PO BID Qty: 60 RF: 0 acetaminophen 500 mg tablet 1,000 mg PO Q8H PRN (Reason: pain) Qty: 90 RF: 3 docusate sodium [Colace] 100 mg capsule 100 mg PO BID PRNQty: 10 RF: 0 pantoprazole 40 mg tablet,delayed release (DR/EC) 40 mg PO DAILY Qty: 30 RF: 0 oxycodone 5 mg tablet 5 mg PO Q4H Qty: 12 RF: 0 Continued ascorbic acid (vitamin C) 1,000 mg tablet 1 gm PO DAILY RF: 0 quetiapine 50 mg tablet 50 - 200 mg PO DAILY Qty: 60 RF: 1 diphenoxylate-atropine [Lomotil] 2.5-0.025 mg tablet 1 tab PO Q12H PRN Qty: 30 RF: 0 multivitamin 1 EACH capsule 1 ea PO DAILY RF: 0 nystatin 60 GM powder 1 gilda Topical BID prn Qty: 60 RF: 11 clobetasol 60 GM cream 1 applic Topical BID PRN RF: 0 cholecalciferol (vitamin D3) [Vitamin D3] 1,000 UNIT tablet,chewable 1,000 unit PO DAILY Qty: 90 RF: 3 vitamin B complex 1 EACH capsule 1 ea PO DAILY RF: 0 Premarin 0.625 mg/gram cream 1 applic Vaginal DAILY Qty: 60 RF: 2 lorazepam 0.5 mg tablet 0.5 mg PO Q12H PRN (Reason: anxiety) Qty: 30 RF: 1 levothyroxine 75 mcg tablet 75 mcg PO DAILY Qty: 90 RF: 3 celecoxib [Celebrex] 200 mg capsule 200 mg PO BID Qty: 60 RF: 1 Discontinued tramadol 100 mg tablet 100 mg PO Q8H PRN (Reason: pain) Qty: 30 RF: 0 Discharge Instructions Additional Instructions: Total Hip Discharge Instructions Activity: The most important activity is to walk. You should try to take short walks a few times a day. You have no restrictions on movement or positioning, but do not try to force what you do. You will find some stiffness and weakness with hip flexion (lifting your knee). Do not try to strengthen this too early, continue to practice walking and stairs and this will come. - Outpatient physical therapy can be helpful to help return you to a normal gait and improve your flexibility and strength. This can start around 2 weeks. For some patients, it?s not necessary. Usually this is determined at the time of discharge or at the first post-operative visit. - You should wear the ZOEY hose on both legs for 2 weeks. Dressing: Keep the surgical dressing in place until your follow-up. It may get wet after 3 days but avoid soaking the dressing. You may use a Cling Wrap or Saran Wrap to keep it dry in the shower. If it gets wet, just lightly pat dry. If the dressing becomes soiled or comes off, just cover with some gauze and tape. In this case, it is important to always keep some gauze between skin folds, especially when you are sitting so the incision does wrinkle onto itself. Medications: - You should take Tylenol and an anti-inflammatory Celebrex as your primary pain control medications. - You have been prescribed a stronger pain medication Oxycodone for breakthrough pain, take as needed as prescribed. - You have also been prescribed a stomach acid reduction agent Pantoprozole to help reduce stomach acid and reflux. - You will be taking Aspirin 81mg twice a day for DVT prevention unless instructed otherwise. - If you have constipation you should take Colace or Miralax (both [id number]). It takes most people 3-4 days to have a bowel movement. Follow-up: 2 weeks If you have any acute concerns or questions, please do not hesitate to contact the office at [phone]. You may contact Dr. Vieira with any questions after hours through the hospital at [phone] or on his cell phone at [phone]. Stand Alone Forms: Anesthesia Discharge Inst., Beryl Ward ([facility]) Referrals: Milad Vieira MD [ [facility] STAFF PHYSICIAN] - Equipment/Supplies: Walker Activity:: Activity as Tolerated Shower/Bathe:: Cover Diet:: As Tolerated Discharge Orders Discharge Orders: Discharge Order (Routine); Ordered 01/20/21 Ordered By: Milad Vieira Discharge Data Discharge Date/Time-TO BE ENTERED AT DEPARTURE: 01/20/21 13:50 DS: Diagnosis Discharge Diagnosis (1) Osteoarthritis of right hip: Status: Acute
[2021-01-20] MEDS: ceFAZolin 2 GM/50 ML BAG IVPB (07:37)
[2021-01-20] MEDS: Bupivacaine 0.25% Pres-Free 30 ML VIAL (08:19)
[2021-01-20] MEDS: Ketorolac 30 MG/ML VIAL (08:19)
--- NOTE | 2021-01-20 08:42 | DI.RAD_ITS ---
Exam(s) XR HIP RT IN OR EXAM: XR HIP RT IN OR CLINICAL HISTORY: RIGHT HIP OA TECHNIQUE: 2D and realtime digital imaging was performed. CONTRAST MATERIAL: Refer to procedure report. COMPARISON: CR XR HIP RT COMPLETE AP PELVIS from 09/04/2020 CR XR HIP RT COMPLETE AP PELVIS from 09/04/2020 FINDINGS: Fluoroscopy was provided for Dr. Vieira during the performance of a right total hip replacement. Please refer to the procedure report for complete details. Ka,r=4.24 mGy IMPRESSION: RADIATION DOSE DELIVERED:
--- NOTE | 2021-01-20 09:28 | ROE_ITS ---
Date of service: 01/20/21 Time of Service: 09:28 Operative Note Operative Note DATE OF PROCEDURE: 01/20/21 PRE-OP DIAGNOSIS: Right Hip Osteoarthritis POST-OP DIAGNOSIS: same PROCEDURE: Right Anterior Total Hip Arthroplasty with Intraoperative Navigation SURGEON: Milad Vieira PHYSICAL PLANT EMPLOYEE: Ese Duarte ANESTHESIA TYPE: Spinal Refer to Anesthesia Record ESTIMATED BLOOD LOSS: 350 PATHOLOGY: none sent TOURNIQUET TIME: 0 COMPLICATIONS: None Patient was transported to: PACU Patient's condition: stable Implants: 1. Depuy [place] Acetabular Component, 48mm 2. Depuy Acetabular Liner, [id number] 3. Depuy Corail Standard 125 degree Collared Femoral Stem, Size 9 4. Depuy Altrx Ceramic Femoral Head, Size 32+5mm Indications: I have seen Lizette in clinic for symptoms of hip arthritis, confirmed with radiographic findings. She has exhausted nonoperative methods and was having significant limitations in daily function and desired better function and less pain. I discussed the technical details of a hip replacement. I explained the risks of the procedure to include, but not limited to, bleeding, infection, pain, stiffness, fracture, damage to nerves and vessels, damage to muscles and tendons, loosening, instability, leg length inequality, need for repeat procedure, blood clot and cardiopulmonary demise. Despite these risks, Lizette elected to proceed. Findings: There was significant signs of arthritis throughout the hip. Procedure Description: Lizette was greeted in the preoperative holding area where the correct side was identified and marked. The consent was reviewed with the patient and signed. The history and physical was updated. All questions were answered. She was taken back to the operating room. A spinal anesthestic was then admi nistered. The feet were wrapped with cast padding and Coban and then placed into the boot liners and then into the boots. Care was taken to protect the skin and make sure the heels were fully down and the boots were stable. The patient was then positioned onto the HANA table. Both legs were held in a neutral position. SCDs were applied. The patient was then slid down onto a peroneal post. Prophylactic antibiotics in the form of Cefazolin were administered. 1g of Tranxemic Acid was given intravenously within 30 minutes of incision. The right leg was then prepped with Chloraprep and draped in a standard fashion. A second prep with Chloraprep was performed prior to placement of a shower-curtain type drape with Iodine impregnated skin protection. A timeout to confirm correct identity, side and site, procedure, allergies, anesthesia, and medical concerns was performed. An obliquely oriented incision was made starting lateral to the ASIS and running distal over the Tensor Fascia Maddy (TFL) muscle belly toward the fibular head, approximately 10cm. The skin and soft tissue was dissected sharply, through Leroy?s fascia, and to the fascia of the TFL. With the fascia and superior border of the IT band identified, the fascia was incised with a new knife just above any perforators from the IT band. The TFL muscle belly was bluntly dissected away from the fascia and moved laterally. The fat between TFL and rectus was identified to ensure the dissection was not within the TFL. Blunt dissection created space between abductors and the capsule and retractor was placed over the lateral femoral neck. The fibers of the rectus femoris tendon were identified and these were freed from the anterior capsule. A second cobra retractor was placed around the medial femoral neck. The TFL was further retracted laterally to show the deep fascia. Careful dissection through this layer identified three main crossing vessels of the lateral femoral circumflex. These were cauterized in multiple locations and then cut without any noticeable bleeding. The TFL was further released bluntly from the deep fascia to expose anterior hip capsule and fat The Bentley orthopaedic retractor was then placed beneath the TFL and against sartorius and medial soft tissues to protect and retract the soft tissues. A T-capsulotomy was then performed starting at the superior lateral acetabulum and moving distally to the intertrochanteric ridge. These capsular flaps were tagged with a No. 1 Ethibond and elevated from within. The capsular flaps were released to the shoulder of the lateral neck and to the lesser trochanter to give excellent visualization of the proximal femur. A neck osteotomy was performed using an oscillating saw based on preoperative templates. This cut started in the shoulder and of the lateral neck and exited medially. The saw was at all times directed medially to avoid injury to the greater trochanter. Gross traction was applied to the leg and the osteotomy opened. The femoral head was removed with a corkscrew, making sure to protect the TFL on its exit. Traction was released after head removal. This was measured on the back table to determine the starting reamer size. Portions of the rectus obscuring visualization were minimally elevated off the superior acetabulum. An anterior retractor was placed over the anterior wall between capsule and labrum and attached to the Gripper retraction system. The femur was rotated to 90 degrees and medial capsule was fully released until the lesser trochanter was palpable and visible; the femur was returned to 30 degrees. A posterior retractor was placed similarly between capsule and labrum. This provided excellent visualization. The contents of the cotyloid fossa were removed with electrocautery and the labrum was removed with a knife. There was a notable floor osteophyte. Acetabular reaming began with a 44mm reamer. This first reaming was directed anterior to posterior and medial to get down to the true floor. This was inspected and reamed until the true floor was reached. The anterior retractor was then released and entry and exit was provided by traction on the capsular flaps. I then reamed sequentially up to a 47mm reamer where good fit was obtained. The larger reamers were oriented based on anatomical reference of the anterior and lateral patel to ensure proper abduction and anteversion. Positioning and size was confirmed with the fluoroscopy. A 48mm Depuy [place] acetabular component was selected. The deep tissues were irrigated. The acetabular component was then impacted in a position of about 40-45 degrees of abduction and 15-20 degrees of anteversion, using the patient?s anatomy as the ultimate landmark. Fluoroscopy was used to confirm this. There was excellent dental technology advisor of the acetabular component and the inserting handle was removed. The acetabular liner, Depuy [id number] polyethylene liner, was inserted and lined up with the tines of the acetabular component. There was no soft tissue interposition. The liner was then impacted into position and confirmed to be well-seated. A portion of the toño-articular cocktail was then injected around the acetabulum into the capsule and periosteum. This cocktail consisted of 50cc of 0.25% Bupivicaine and 20cc of Exparel and 30mg of Ketorolac. The leg was rotated to 120 degrees. Any remaining medial capsule was released until the lesser trochanter was easily palpable. A retractor was placed medially. The lateral capsule was further released into the shoulder to allow access to the greater trochanter. A Casey retractor was placed over the greater trochanter which allowed the trochanter to flip in front of the capsule for excellent exposure. The leg was brought down into maximal extension and 20 degrees of adduction while ensuring there was no impingement on the acetabulum. Any remnant capsule within the trochanter was released. Piriformis and obturator externis were identified and protected. There was excellent access to the proximal femur. The lateral neck remnant was removed with a rongeur. A blunt canal probe was used to identify the canal and trajectory for later broaching. A box osteotome initiated the broach course. A small curved rasp and a curved curette were used to work laterally. Broaching then began with a size 8 Corail broach. This was inserted manually around the trochanter and into the canal before mallet blows. The broach was seated to a few millimeters below the cut level based on the neck cut and the preoperative template. Sequential broaching was continued with the [employer] pneumatic broaching device until a tight fit was obtained with good rotational control of the femur. A trial standard neck was inserted along with a +1 trial head. The leg was brought out of extension and adduction and then reduced with traction and internal rotation. The leg was stable anteriorly in a position of 30 degrees of extension and 90 degrees of external rotation. Fluoroscopy was used to ensure there was no fracture and the stem was seated well. Leg lengths were checked with an AP pelvis and pelvic reference points. Cydan navigation system was used to confirm appropriate positioning and leg length and offset. This evaluation showed too much leg length and some under-offset. Therefore, proceeding with a 125 degree neck, advancing it 2-3mm and using a +5 head would adequately restore offset but also add only 3-4mm of leg length, as planned. Once content with the desired offset and leg lengths, the leg was brought back into extension, external rotation and adduction. The periosteum and surrounding tissue was injected with remaining portion of the toño-articular cocktail. The proximal femur was irrigated as well as the deep tissues. The Depuy [place] standard 125 degree collared stem, size 9, was then manually inserted into the proximal femur making sure to control rotation. It was then malleted into position with light blows, giving breaks to allow bone expansion and decrease risk of fracture. The selected Depuy Altrx Ceramic Head, size 32+5mm, was then placed onto the clean and dry trunnion and secured with impaction onto the tapered fit. The leg was brought back out of extension and adduction and reduced with traction and internal rotation. Stability was confirmed with no shuck at 90 degrees of external rotation and 30 degrees of extension. No impingement through range of motion arc. Final x-ray images were obtained with fluoroscopy to confirm adequate positioning and no intraoperative fracture. The deep tissues were thoroughly irrigated with Irrisept chlorhexadine solution. The second dose of TXA 1g was administered intravenously.The capsule was then reapproximated with the previously placed Ethibond sutures. The TFL fascia was finally closed with a No. 2 Stratafix, barbed suture. Deep tissues were then reapproximated with 0 Vicryl and a running 2-0 Vicryl. The skin was closed with a running 4-0 Monocryl in a subcuticular fashion. This was reinforced with skin glue. A Mepilex silver dressing was applied. At the end of the case, all counts were correct. Lizette was transferred to the hospital bed without difficulty and suffering no apparent complication. Lizette has a good prognosis. Physical therapy will start today and without restrictions, weight-bearing as tolerated. Aspirin 81mg BID will be used for DVT prophylaxis.
[2021-01-20] MEDS: LORazepam 2 MG/ML VIAL 0.25 MG IVP (10:28)
[2021-01-20] MEDS: Normal Saline 10 ML VIAL IJ (10:28)
--- NOTE | 2021-01-20 12:04 | W.ANESPOSTOP ---
Postoperative Evaluation Date, Time and Location Date Performed: 01/20/21 Time Performed: 12:04 Patient Location: Day Surgery Unit Vital Signs Most Recent Imported Vital Signs: Most Recent Vital Signs Temp Pulse Resp BP Pulse Ox 36.4 C L 81 16 122/75 100 01/20/21 11:38 01/20/21 11:38 01/20/21 11:38 01/20/21 11:38 01/20/21 11:38 Pain Score Most Recent Pain Score: Most Recent Pain Score Pain Level 0 01/20/21 11:38 Assessment Mental Status: Awake (Alert & Oriented to Patient Baseline) Airway and Respiratory Function: Patent airway with normal (patient baseline) respiratory exam Cardiovascular Function: Hemodynamically Stable Hydration Status: Adequately Hydrated Nausea & Vomiting: No Nausea or Vomiting Pain: Pain is tolerable per patient Peripheral Nerve Block: Patient did not receive a nerve block
--- NOTE | 2021-01-20 12:10 | PT.INIE ---
Date of service: 01/20/21 Time of Service: 12:10 PT Notes Visit Reasons: Right Hip DJD Physical Therapy Day Surgery Initial Evaluation Date: 01/20/2021 Referring Doctor: Milad Vieira MD PT Orders: PT CONSULT: S/P Ortho Surgery Precautions: WBAT on the R LE with AD. Standard. Patient Profile/Admitting Diagnosis: Lizette is a 80-year-old female with degenerative joint disease of the right hip and is status post right total hip arthroplasty on postoperative day 0. PMHX: Active Problem List (Updated 01/12/21 @ 15:33 by MAYELA Schulet) Osteoarthritis of right hip (Acute) Hip joint pain (Acute) Sciatica (Acute) RLQ abdominal pain (Acute) Depression (Chronic) Skin tear of left lower leg without complication (Acute) Glossodynia (Acute) Chronic insomnia (Acute) Muscular deconditioning (Acute) Left knee sprain (Acute) Rash (Acute) Bursitis of left knee (Acute) Persistent mood disorder (Chronic) Carpal tunnel syndrome of right wrist (Acute 12/17/13) History of bilateral ligation of fallopian tubes (Acute) History of methicillin resistant Staphylococcus aureus infection (Acute) History of tobacco use (Acute) Status post breast biopsy (Acute) Status post bunionectomy (Acute 11/18/14) Status post hip replacement (Acute) Status post trigger finger release (Acute) Rotator cuff syndrome (Acute 05/07/13) Recurrent urinary tract infection (Acute 03/19/15) Low back pain (Acute 01/14/11) Intention tremor (Acute) Impaired fasting glucose (Acute 05/12/15) Hypothyroidism (Acute 07/24/12) Hives (Acute 05/08/15) Generalized osteoarthrosis (Acute 10/22/10) Fatigue (Acute 10/02/12) Bipolar I disorder (Acute 07/24/12) Benign paroxysmal positional vertigo (Acute 05/07/13) Atrophic vaginitis (Acute 10/22/10) Weak urinary stream (Acute) Bipolar II disorder, moderate, depressed, with anxious distress (Acute) Surgical History Biopsy of breast left; benign lump Correction, Hammertoe (11/18/14) RIGHT FOOT ; DR. 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 Trigger Finger release (~01/2012) WRIST/FINGER (~04/2013) Social History/Home Situation: Lives with in a private home with 2 wide steps to enter with no rails. Independent with all aspects of ADLs prior to surgery. Has had no falls in the past 12 months. Equipment Owned/DME: [facility] Subjective: Agreeable to PT consult. Denies headache, dizziness, chest pain throughout session. Objective: General Observation: Mepilex Ag over surgical incision. TEDS on B legs. present throughout session. Mental Status: Alert and oriented x 4 Pain: Denies ROM: Right Lower Extremity: Hip flexion WFL. Hip abduction WFL. Knee flexion WFL. Ankle dorsiflexion WFL. Ankle plantarflexion WFL. Left Lower Extremity: Hip flexion WFL. Hip abduction WFL. Knee flexion WFL. Ankle dorsiflexion WFL. Ankle plantarflexion WFL. Strength: Right Lower Extremity: Hip flexors 4/5. Hip abductors 4/5. Knee flexors 5/5. Knee extensors 4/5. Ankle dorsiflexors 5/5. Ankle plantarflexors 5/5. Left Lower Extremity:Hip flexors 5/5. Hip abductors 5/5. Knee flexors 5/5. Knee extensors 5/5. Ankle dorsiflexors 5/5. Ankle plantarflexors 5/5. Sensation: Inatct as to pain and light pressure in B LE. Denies numbness nor tingling. Bed Mobility/Transfers: Supine to sit supervision Sit to stand supervision Stand to sit supervision Bed to chair supervision Gait: Instructed patient with level surface ambulation up to 200 feet using front wheel walker minutes through pattern requiring only standby assist with no report of increased pain in the right hip. Mobility. No instability. Minimal verbal cueing with initially for walker management and safe gait pattern. Stairs: Down 6 x 4-inch steps and 4 x 6-inch steps while holding onto a rail and testing point cane requiring only standby assist and minimal verbal cueing for safe technique. Balance: Static Sitting: Normal Dynamic Sitting: Normal Static Standing: Fair Dynamic Standing: Fair Special Tests: Mobility Limitations Standardized Measure [facility]-PAC 6 clicks Basic Mobility Inpatient Short Form: Raw Score: 23 CMS Score: 11% deficit Informed Consent/Education: Patient instructed in purpose of PT consult. Packet containing L KAM exercise protocol has been given to patient. Education and training on initial set of exercises that can be done at home have been completed with patient. participated in exercise training/education as well as stair negotiation session. Assessment: Lizette demonstrates functional mobility dependence requiring the need for the use of a FWW for all mobility ADL performance to reduce fall risk and maximize independence. Patient presents with clinical signs and symptoms consistent with current/admitting diagnoses that have resulted to mobility limitations, gait instability, generalized weakness, and impairment of motor control as demonstrated by the following impairment level findings: 1. Decreased strength to R hip major muscle groups 2. Impaired standing balance 3. Decreased activity tolerance Impairments are contributing to the following functional limitations: 1. Inability to safely ambulate without assistive device 2. Increase completion time for mobility ADL performance 3. Increased fall risk Patient is assessed as a 82586 moderate complexity based on the following: History: 80-year-old female with impairment level findings, functional limitations, and past medical history as indicated above Examination: Demonstrable impairment in strength, balance, and mobility level with underlying impairments and functional limitations as documented above Presentation: Evolving Decision Makin moderate complexity Goals: N/A. PT evaluation and 1-2 treatment sessions only for functional mobility training using recommended AD and for HEP instruction. Plan of Care/Treatment Plan: N/A. PT evaluation and 1-2 treatment session only for functional mobility training using recommended AD and for HEP instruction. DISCHARGE RECOMMENDATIONS: [] Home with no services [] [X] Home with services. Home when medically cleared by orthopedic surgeon. Outpatient PT services to facilitate return to premorbid independent community ambulation without an assistive device. [] Home with outpatient PT [] [] SNF for continued rehabilitation [] [] [facility] [] [] SNF versus LTC based on ability to participate and progress [] TREATMENT CODE/TIME: 47550 x 20 minutes, 73802 x 26 minutes beginning at 12:10 PM. Thank you for the opportunity to participate in the care of this patient. Luiza Milian PT, DPT, CLT [facility] [place], [place]
[2021-01-20] MEDS: oxyCODONE 5 MG TAB PO (13:13)
== END 2021-01-20 13:50 | disposition home or self-care (01) ==
PROVIDERS: PCP Family Medicine; Visit Provider Student in an Organized Health Care Education/Training Program
PROC: (CPT 27130; principal; 2021-01-20 07:30)
DX: M16.11 Unilateral primary osteoarthritis, right hip (principal); E03.9 Hypothyroidism, unspecified; G89.18 Other acute postprocedural pain
CPT/HCPCS: 20985; 27130; C1776; 97162; 97530; 73501; J0690; J1100; J1885; J2060; J2370; J2405

== ENCOUNTER 2021-02-04 11:12 | Outpatient (CLI) | payer MEDICARE, BC, SELFPAY ==
--- NOTE | 2021-02-04 11:00 | DI.RAD_ITS ---
Exam(s) XR HIP RT COMPLETE AP PELVIS EXAM: XR HIP RT COMPLETE AP PELVIS CLINICAL HISTORY: 1ST POST OP R KAM. TECHNIQUE: 2D digital imaging was performed. COMPARISON: CR XR HIP RT COMPLETE AP PELVIS from 09/04/2020 FINDINGS: There has been interval right hip arthroplasty, performed 01/20/2021. Satisfactory position alignment of components recently placed no fracture or loosening evident. Pros thesis in the opposite-left hip is also noted and appears satisfactory. IMPRESSION: DATA REPOSITORY: RADIATION DOSE DELIVERED:
== END 2021-02-04 11:13 | disposition home or self-care (01) ==
LOC: DIORS 11:13
PROVIDERS: PCP Family Medicine; Referring Provider Family Medicine; Visit Provider Student in an Organized Health Care Education/Training Program
DX: Z96.641 Presence of right artificial hip joint (principal); Z47.1 Aftercare following joint replacement surgery
CPT/HCPCS: 73502

== ENCOUNTER → 2021-03-04 10:58 | Outpatient (BNVA) | payer MEDICARE, BC, SELFPAY | PROVIDERS: PCP Family Medicine; Referring Provider Family Medicine | DX: Z47.1 Aftercare following joint replacement surgery (principal); Z96.641 Presence of right artificial hip joint ==

== ENCOUNTER 2021-04-30 16:40 | Outpatient (REF) | payer MEDICARE, BC, SELFPAY ==
[2021-04-30 21:06] LABS: Bilirubin Negative (Negative); Blood Moderate (Negative); Clarity Sl Cloudy (Clear); Glucose Negative (Negative); Ketones Negative (Negative); Leukocyte Esterase Moderate (Negative); Nitrite Positive (Negative); Urobilinogen 0.2 EU/dL (Up TO 0.2)
[2021-04-30 21:13] LABS: Bacteria Many HPF (Negative); C & S Indicated? Yes; Casts Negative LPF (Negative); Crystals Negative HPF (Negative); Epithelial Cells Few HPF (Negative); Mucus Negative (Negative); WBC >50 HPF (0-5)
== END 2021-04-30 16:41 | disposition home or self-care (01) ==
LOC: LBN 16:40
PROVIDERS: PCP Family Medicine; Visit Provider Nurse Practitioner Family
DX: R35.0 Frequency of micturition (principal)
CPT/HCPCS: 87077; 81003; 81015; 87086; 87186

== ENCOUNTER 2021-05-10 17:24 | Outpatient (REF) | payer MEDICARE, BC, SELFPAY | END 2021-05-10 17:25 | disposition home or self-care (01) | LOC: LBN 17:24 | PROVIDERS: PCP Family Medicine; Visit Provider Family Medicine | DX: N39.0 Urinary tract infection, site not specified (principal) | CPT/HCPCS: 87077; 87086; 87186 ==

== ENCOUNTER 2021-06-08 00:46 | Outpatient (CLI) | payer MEDICARE, BC, SELFPAY ==
--- NOTE | 2021-06-08 15:00 | DI.CT_ITS ---
Exam(s) CT HEAD WO EXAM: CT HEAD WO CLINICAL HISTORY: persist new mod-severe PRICE, posterior, c/p recent bleed/acute process,R51.9. TECHNIQUE: Imaging Protocol: Axial computed tomography images with coronal and sagittal reformatted images were created and reviewed COMPARISON: No exams were available for comparison FINDINGS: There are no skull fractures nor fluid in the visualized paranasal sinuses. There is no evidence of intracranial hemorrhage, mass effect, or shift of midline structures. There are no extra-axial fluid collections. The ventricles are not enlarged or shifted and there is no blo od within the ventricular system nor within the basal cisterns. IMPRESSION: No acute intracranial findings on this noninfused CT scan of the brain. RADIATION DOSE DELIVERED: 676.34mGy.cm Total DLP DATA REPOSITORY: All CT scans at this facility are submitted to the National Radiology Data Registry (NRDR) Dose Index Registry (DIR) with the [employer] ([employer]). RADIATION OPTIMIZATION: All CT scans at this facility use at least one of these dose optimization te chniques: automated exposure control; mA and/or kV adjustment per patient size (includes targeted exa ms where dose is matched to clinical indication); or iterative reconstruction.
== END 2021-06-08 01:06 ==
PROVIDERS: PCP Family Medicine; Visit Provider Family Medicine
DX: R51.9 Headache, unspecified (principal)
CPT/HCPCS: 70450

== ENCOUNTER 2021-06-14 05:08 | Outpatient (CLI) | payer MEDICARE, BC, SELFPAY ==
[2021-06-14 14:02] LABS: ESR 15 mm/hr (0-30); HCT 41.1 % (36.0-46.0); HGB 13.5 g/dL (11.2-15.7); MCH 30.7 pg (27.0-33.0); MCHC 32.8 % (32.0-36.0); MCV 93.4 fL (80-95); MPV 12.1 fL (8.0-11.0); Platelet Count 215 10^3/uL (130-400); RDW 13.2 % (11.7-14.6); RDW-SD 45.9 fL; WBC 7.41 10^3/uL (4.4-10.8)
[2021-06-14 14:24] LABS: ALT 25 U/L (14-59); AST 24 U/L (15-37); Albumin 3.4 g/dL (3.4-5.0); Alkaline Phosphatase 138 U/L (46-116); Anion Gap 5.5 mmol/L (3-11); BUN 20 mg/dL (7-18); Bilirubin, Total 0.9 mg/dL (0.2-1.0); CO2 28.5 mmol/L (21.0-32.0); CREATININE 0.9 mg/dL (0.55-1.02); Calcium 9.1 mg/dL (8.5-10.1); Chloride 105 mmol/L (98-107); Glucose 141 mg/dL (74-106); Potassium 4.1 mmol/L (3.5-5.1); Sodium 139 mmol/L (136-145); TSH (W/Ref FT4) 1.84 uIU/mL (0.36-3.74); Total Protein 7.3 g/dL (6.4-8.2)
[2021-06-14 14:25] LABS: C-Reactive Protein < 0.05 mg/dL (0.0-0.3)
== END 2021-06-14 05:09 | disposition home or self-care (01) ==
LOC: LBO 05:08
PROVIDERS: PCP Family Medicine; Visit Provider Family Medicine
DX: E03.9 Hypothyroidism, unspecified (principal); I10 Essential (primary) hypertension; R51.9 Headache, unspecified
CPT/HCPCS: 36415; 80053; 85027; 85652; 84443; 86140

== ENCOUNTER → 2021-06-24 10:29 | Outpatient (BNVA) | payer MEDICARE, BC, SELFPAY | PROVIDERS: PCP Family Medicine; Referring Provider Family Medicine; Visit Provider Physician Assistant | DX: Z96.641 Presence of right artificial hip joint (principal) | CPT/HCPCS: 99212 ==

== ENCOUNTER → 2021-07-14 13:41 | Outpatient (BNVA) | payer MEDICARE, BC, SELFPAY | PROVIDERS: PCP Family Medicine; Referring Provider Family Medicine; Visit Provider Nurse Practitioner Gerontology | DX: N39.0 Urinary tract infection, site not specified (principal); R30.0 Dysuria | CPT/HCPCS: 81003; 99214 ==

== ENCOUNTER 2021-07-14 17:54 | Outpatient (REF) | payer MEDICARE, BC, SELFPAY | END 2021-07-14 17:55 | disposition home or self-care (01) | LOC: LBN 17:54 | PROVIDERS: PCP Family Medicine; Visit Provider Nurse Practitioner Gerontology | DX: N39.0 Urinary tract infection, site not specified (principal) | CPT/HCPCS: 87077; 87086; 87186 ==

== ENCOUNTER → 2021-08-12 15:03 | Outpatient (BNVA) | payer MEDICARE, BC, SELFPAY | PROVIDERS: PCP Family Medicine; Referring Provider Family Medicine; Visit Provider Nurse Practitioner Gerontology | DX: B96.1 Klebsiella pneumoniae [K. pneumoniae] as the cause of diseases classified elsewhere (principal); N39.0 Urinary tract infection, site not specified; R30.0 Dysuria | CPT/HCPCS: 81003; 99214 ==

== ENCOUNTER 2021-08-24 14:08 | Outpatient (REF) | payer MEDICARE, BC, SELFPAY ==
[2021-08-24 13:51] LABS: Bilirubin Negative (Negative); Blood Large (Negative); Clarity Cloudy (Clear); Glucose Negative (Negative); Ketones Negative (Negative); Leukocyte Esterase Large (Negative); Nitrite Negative (Negative); Specific Gravity 1.015 (1.005-1.025); Urobilinogen 0.2 EU/dL (Up TO 0.2); pH 6.5 (5-8)
[2021-08-24 14:00] LABS: Bacteria Many HPF (Negative); WBC >50 HPF (0-5)
[2021-08-24 14:02] LABS: C & S Indicated? C&S Done As Ordered
== END 2021-08-24 14:09 | disposition home or self-care (01) ==
LOC: NCHCN 14:08
PROVIDERS: PCP Family Medicine; Visit Provider Nurse Practitioner Gerontology
DX: R30.0 Dysuria (principal); N39.0 Urinary tract infection, site not specified
CPT/HCPCS: 87077; 81003; 81015; 87086; 87186

== ENCOUNTER 2022-01-21 10:43 | Outpatient (CLI) | payer MEDICARE, BC, SELFPAY ==
--- NOTE | 2022-01-21 10:25 | DI.RAD_ITS ---
Exam(s) XR HIP RT AP LAT ONLY EXAM: XR HIP RT AP LAT ONLY INDICATION: ANNUAL F/U R KAM. COMPARISON: No exams were available for comparison TECHNIQUE: 2D digital imaging was performed. Two views. FINDINGS: There has been no change in the alignment of the right hip prosthesis or appearance of the surroundin g bone. DATA REPOSITORY: RADIATION DOSE DELIVERED:
== END 2022-01-21 10:44 | disposition home or self-care (01) ==
LOC: DIORS 10:44
PROVIDERS: PCP Family Medicine; Referring Provider Family Medicine; Visit Provider Student in an Organized Health Care Education/Training Program
DX: Z96.641 Presence of right artificial hip joint (principal)
CPT/HCPCS: 99213; 73502

== ENCOUNTER → 2022-02-10 15:00 | Outpatient (BNVA) | payer MEDICARE, BC, SELFPAY | PROVIDERS: PCP Family Medicine; Referring Provider Family Medicine; Visit Provider Nurse Practitioner Gerontology | DX: Z09 Encounter for follow-up examination after completed treatment for conditions other than malignant neoplasm (principal); Z87.440 Personal history of urinary (tract) infections | CPT/HCPCS: 99213 ==

== ENCOUNTER → 2022-08-11 15:03 | Outpatient (BNVA) | payer MEDICARE, BC, SELFPAY | PROVIDERS: PCP Family Medicine; Visit Provider Nurse Practitioner Gerontology | DX: Z09 Encounter for follow-up examination after completed treatment for conditions other than malignant neoplasm (principal); Z87.440 Personal history of urinary (tract) infections | CPT/HCPCS: 99213 ==

== ENCOUNTER 2022-11-29 19:32 | Outpatient (REF) | payer MEDICARE, BC, SELFPAY ==
[2022-11-29 14:24] LABS: C Diff PCR Negative (Negative)
[2022-11-30 13:29] LABS: Campylobacter PCR Negative (Negative); Salmonella PCR Negative (Negative); Shiga Toxin PCR Negative (Negative); Shigella/Enteroinvasive Ecoli Negative (Negative)
== END 2022-11-29 19:33 | disposition home or self-care (01) ==
LOC: LBN 19:32
PROVIDERS: PCP Family Medicine; Visit Provider Family Medicine
DX: R19.7 Diarrhea, unspecified (principal)
CPT/HCPCS: 87493; 87505; 87177

== ENCOUNTER 2023-01-18 15:29 | Outpatient (REF) | payer MEDICARE, BC, SELFPAY ==
[2023-01-20 11:55] LABS: Adenovirus F40/41 Negative (Negative); Astrovirus Negative (Negative); C. difficile toxin Negative (Negative); Cryptosporidium species Negative (Negative); Cyclospora cayetanensis Negative (Negative); Entamoeba histolytica Negative (Negative); Enteroaggregative E.coli(EAEC) Negative (Negative); Enteropathogenic E.coli (EPEC) Negative (Negative); Enterotoxigenic E.coli (ETEC) Negative (Negative); Norovirus GI/GII Negative (Negative); Plesiomonas shigelloides Negative (Negative); Salmonella species Negative (Negative); Sapovirus Negative (Negative); Shiga toxin producing E.coli Negative (Negative); Shigella/Enteroinvasive E.coli Negative (Negative); Specimen Source STOOL; Vibrio cholerae Negative (Negative); Yersinia species Negative (Negative)
[2023-01-21 17:26] LABS: Calprotectin <50.0 mcg/g
== END 2023-01-18 15:30 | disposition home or self-care (01) ==
LOC: LBN 15:29
PROVIDERS: PCP Family Medicine; Visit Provider Nurse Practitioner Adult Health
DX: R19.7 Diarrhea, unspecified (principal); A00.9 Cholera, unspecified
CPT/HCPCS: 87507; 83993

== ENCOUNTER 2023-05-17 09:42 | Outpatient (CLI) | payer MEDICARE, BC, SELFPAY ==
[2023-05-17 13:07] LABS: Calculated LDL 150 mg/dL (<100); Cholesterol 246 mg/dL (<200); HDL Cholesterol 50 mg/dL (40-60); TSH (W/Ref FT4) 4.57 uIU/mL (0.36-3.74); Triglyceride 231 mg/dL (<150)
[2023-05-17 13:10] LABS: Hemoglobin A1C 5.6 % (<5.7)
[2023-05-17 13:26] LABS: FREE T4 1.06 ng/dL (0.76-1.46)
== END 2023-05-17 09:43 | disposition home or self-care (01) ==
LOC: LOS 09:42
PROVIDERS: PCP Family Medicine; Visit Provider Family Medicine
DX: E03.9 Hypothyroidism, unspecified (principal); E78.5 Hyperlipidemia, unspecified; E11.51 Type 2 diabetes mellitus with diabetic peripheral angiopathy without gangrene
CPT/HCPCS: 36415; 80061; 83036; 84439; 84443

== ENCOUNTER → 2023-11-23 14:03 | Outpatient (BNVA) | payer MEDICARE, BC, SELFPAY | PROVIDERS: PCP Family Medicine; Visit Provider Nurse Practitioner Gerontology | DX: Z87.440 Personal history of urinary (tract) infections (principal) | CPT/HCPCS: 99213 ==

== ENCOUNTER 2024-10-09 10:01 | Outpatient (CLI) | payer MEDICARE, SELFPAY ==
--- NOTE | 2024-10-09 08:15 | DI.US_ITS ---
Exam(s) US SOFT TISSUE EXTREMITY EXAM: US SOFT TISSUE EXTREMITY CLINICAL HISTORY: evaluate pathology,ganglion cyst lt wrist,[id number]. TECHNIQUE: Ultrasound was performed using standard protocol. COMPARISON: No exams were available for comparison FINDINGS: Sonographic assessment utilizing grayscale and color Doppler imaging was performed and targeted to the area of clinical concern. Area of palpable abnormality at the lateral wrist corresponds to a circumscribed cystic area containing debris, measuring 9 x 6 x 9 millimeters, consistent with a ganglion cyst. A stalk is present. No vascularity. IMPRESSION: 9 millimeter ganglion cyst corresponds to the palpable abnormality. There is some debris within the cyst. DATA REPOSITORY:
== END 2024-10-09 10:21 ==
PROVIDERS: PCP Family Medicine; Visit Provider Nurse Practitioner Family
DX: M67.432 Ganglion, left wrist (principal)
CPT/HCPCS: 76881

== ENCOUNTER → 2024-10-25 07:57 | Outpatient (BNVA) | payer MEDICARE, SELFPAY | PROVIDERS: PCP Family Medicine; Referring Provider Family Medicine; Visit Provider Physician Assistant | DX: M65.4 Radial styloid tenosynovitis [de Quervain] (principal) | CPT/HCPCS: 99213 ==